=== PATIENT | male | born 1990 | race Caucasian/White ===

== ENCOUNTER 2016-12-05 11:05 | Emergency (ER) | payer OTHER ==
[2016-12-05 11:19] VITALS: BP 126/76; TEMP 97.3; O2SAT 96
[2016-12-05] MEDS ORDERED: KETOROLAC TROMETHAMINE INJ 30 MG/ML VIAL IM ONE (11:41)
[2016-12-05] MEDS ORDERED: ORPHENADRINE CITRATE 30 MG/ML AMP IV ONE (11:41)
--- NOTE | 2016-12-05 11:42 | ED.PDOC ---
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 The pain is right of the lumbar vertebrae, constant, occasional radiation down the right leg, sharp in nature, intermittent in intensity, worse with movement, better with rest, no associated sx, no previous episodes nor back trauma. No saddle anesthesia nor incontinence/inability to urinate. Timing/Duration: 24 hours Severity: moderate Improving Factors: rest Worsening Factors: movement Associated Symptoms: denies symptoms Allergies/Adverse Reactions: Allergies NO KNOWN ALLERGY Allergy (Verified 07/15/15 20:56) Home Medications: Ambulatory Orders Cyclobenzaprine HCl [Flexeril] 10 mg PO TID #30 tab 12/05/16 Tramadol HCl 50 mg PO Q4HR #60 tab 12/05/16 Review of Systems - Review of Systems Constitutional: States: no symptoms reported EENTM: States: no symptoms reported Respiratory: States: no symptoms reported Cardiology: States: no symptoms reported Gastrointestinal/Abdominal: States: no symptoms reported Genitourinary: States: no symptoms reported Musculoskeletal: States: see HPI Skin: States: no symptoms reported Neurological: States: see HPI Endocrine: States: no symptoms reported Hematologic/Lymphatic: States: no symptoms reported Past Medical History (General) - Patient Medical History Hx Congestive Heart Failure: No Hx Diabetes: No - Vaccination History Hx Tetanus, Diphtheria Vaccination: Yes Hx Influenza Vaccination: - unknown Hx Pneumococcal Vaccination: No - Social History Hx Tobacco Use: Yes Hx Chewing Tobacco Use: No Hx Alcohol Use: Yes - occ Hx Substance Use: Yes Hx Substance Use Treatment: No Hx Depression: No Hx Physical Abuse: No Hx Emotional Abuse: No Hx Suspected Abuse: No - Female History Patient : No Family Medical History - Family History Father Family History: Unknown Physical Exam - Physical Exam General Appearance: Alert Respiratory: lungs clear Cardiovascular/Chest: regular rate, rhythm Gastrointestinal/Abdominal: normal bowel sounds, non tender, soft Rectal Exam: other - Moderately TTP to the right of the first three lumbar vertebrae. Straigt leg raise positive at 15 degrees. Cross-leg raise is negative. 2+ Patellar DTRs bilaterally. Heel walking elicits the shooting pain down the right leg. DTR: 2+: Patellar, left, Patellar, right Progress - Progress Progress: 12/05/16 11:44 Toradol 30 mg IM x one Norflex 60 mg IM x one Departure - Departure Clinical Impression: Sciatica, Back pain Disposition: Discharge to Home or Self Care Condition: Good Departure Forms: ED Discharge - Pt. Copy, Patient Portal Self Enrollment Diet: resume usual diet Activity: increase activity as tolerated - No lifting more than 15 pounds for at least two weeks. Prescriptions: Tramadol HCl 50 mg PO Q4HR #60 tab Cyclobenzaprine HCl [Flexeril] 10 mg PO TID #30 tab Home Medications: Ambulatory Orders Cyclobenzaprine HCl [Flexeril] 10 mg PO TID #30 tab 12/05/16 Tramadol HCl 50 mg PO Q4HR #60 tab 12/05/16 Additional Instructions: No lifting more than 15 pounds for at least two weeks. Follow up with your regular doctor for clearance to return to full duty in two weeks. Take medications as prescribed. Return to the ER or your regular doctor if pain does not improve over the next two weeks or has not resolved completely in 4-6 weeks.
[2016-12-05] MEDS ORDERED: ORPHENADRINE CITRATE 30 MG/ML AMP IM ONE (11:44)
== END 2016-12-05 12:02 | disposition home or self-care (01) ==
LOC: ER 11:05
DX: M54.41 Lumbago with sciatica, right side (principal); Z87.891 Personal history of nicotine dependence
CPT/HCPCS: J1885; J2360

== ENCOUNTER → 2017-01-21 | Outpatient (CLI) | payer OTHER ==
--- NOTE | 2017-01-21 13:24 | MRI ---
EXAM DESCRIPTION: Lumbar Spine w/o Contrast CLINICAL HISTORY: LOW BACK PAIN post trauma, bilateral leg pain and numbness COMPARISON: None Available. TECHNIQUE: Multi plantar multi sequence non contrast imaging. FINDINGS: There is good alignment of the lumbar spine. There is no vertebral pathology. The examination demonstrates a large cystic space extending from T12 through the mid body of L2 posterior and to the right of the cauda equina and distal nerve roots. 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 The space measures 7.53 x 1.95 x 0.87 cm L1-2: Unremarkable other than the meningeal cysts. L2-3: Unremarkable. L3-4: Unremarkable. L4-5: Unremarkable. L5-S1: Unremarkable. IMPRESSION: A large cystic mass is seen posterior to the cauda equina distal nerve roots to the right of midline. 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 It extends from T12 through L2 Electronically signed by: Geronimo Hayward MD 01/21/2017 1:22 PM CDT
== END | disposition home or self-care (01) ==
LOC: MRI 10:52
PROVIDERS: ATTEND Family Medicine
DX: G96.8 Other specified disorders of central nervous system (principal)